=== PATIENT | female | born 2000 | race Two or more races ===

== ENCOUNTER 2023-04-15 09:48 | Emergency (ER) | payer MEDICAID, OTHER ==
[~2023-04-15] VITALS: Ht 157.5 cm; Wt 84.0 kg
[2023-04-15 12:05] LABS: Urine Bacteria FEW /hpf (None Seen); Urine Blood Negative /uL (Negative); Urine Clarity HAZY (Clear); Urine Color Yellow (Yellow); Urine Mucus FEW (None Seen); Urine Protein, UAD Negative (Negative); Urine Specific Gravity 1.024 (1.001-1.035); Urine Urobilinogen Normal (Negative); Urine WBC 12 /hpf (0 - 5)
[2023-04-15] MEDS ORDERED: CEPH250C PO (12:52)
[2023-04-15 13:07] VITALS: BP 109/64; PULSE 72; RESP 16; TEMP 98.1; O2SAT 99
== END 2023-04-15 13:11 | disposition home or self-care (01) ==
LOC: ER 09:48
DX: O23.41 Unspecified infection of urinary tract in pregnancy, first trimester (principal); R10.2 Pelvic and perineal pain; Z3A.01 Less than 8 weeks gestation of pregnancy; Z79.899 Other long term (current) drug therapy
CPT/HCPCS: 36415; 76801; 81001; 84702

== ENCOUNTER 2023-11-06 05:31 | Emergency (ER) | payer MEDICAID ==
[~2023-11-06] VITALS: Ht 157.5 cm; Wt 103.3 kg
[~2023-11-06 05:31] MED LIST: CEPH250C PO
[2023-11-06 05:35] VITALS: BP 136/84; PULSE 98; RESP 16; TEMP 98.2; O2SAT 96
[2023-11-06] MEDS ORDERED: LIDO2SOL26 MT (06:42)
[2023-11-06] MEDS ORDERED: AZIT500T66 PO (06:42)
== END 2023-11-06 06:48 | disposition home or self-care (01) ==
LOC: ER 05:31
DX: O99.513 Diseases of the respiratory system complicating pregnancy, third trimester (principal); J03.90 Acute tonsillitis, unspecified; Z3A.36 36 weeks gestation of pregnancy; Z79.899 Other long term (current) drug therapy